=== PATIENT | male | born 1980 | race Caucasian/White ===

== ENCOUNTER → 2020-06-27 09:00 | Outpatient (CLI) | payer OTHER, SELFPAY | PROVIDERS: Referring Provider Otolaryngology; Visit Provider Otolaryngology | DX: Z11.59 Encounter for screening for other viral diseases (principal) | CPT/HCPCS: 87635; C9803; U0003 ==

== ENCOUNTER → 2020-07-04 15:31 | Outpatient (CLI) | payer OTHER, SELFPAY ==
--- NOTE | 2020-07-04 12:20 | SEP_PTH ---
PATIENT: INGRIS COLLADO LOC: [facility] U#:[id number] AGE/SX: 45/M ROOM: RE07/04/[address]: Dr. Kirk Parekh MD : [id number] BED: DIS: SPEC #: [id number] RECD: 07/04/20 15:05 STATUS: KASSANDRA RODOLFO #: [id number] MILE: 07/04/20 12:[address]: Kirk Parekh DEPT: SURGICAL PATHOLOGY RECD BY: Leela Short ENTERED: 07/05/20 09:19 SP TYPE: SEPTUM OTHR DR: No Primary Care Phys [facility] Tissues: Nasal septum, NOS Procedures: Decalcification bone/plaque Surgery Specimen Level III HEADER OPERATION: Septoplasty, submucosal resection of inferior turbinates PRE-OP DIAGNOSIS: Nasal congestion, deviated nasal septum, hypertrophy of nasal turbinates TISSUE SUBMITTED: Septum MICROSCOPIC DIAGNOSIS Nasal septum, septoplasty: Fragments of hyaline cartilage and bone with focal reactive and reparative change (clinically deviated septum). AM:alf 07/08/20 MICROSCOPIC DESCRIPTION Slides are reviewed. GROSS DESCRIPTION Received in fixative is one container labeled with the patient's name and designated septum. The specimen consists of multiple irregular fragments of light pink-yanez bone and cartilage that in aggregate measure 3 x 2.5 x 0.2 cm. The specimen is totally submitted in one cassette after decalcification. / AM:alf 07/05/20 TC:3 CPT: 39595, 68039
== END ==
LOC: LABSPEC 15:34
PROVIDERS: Referring Provider Otolaryngology; Visit Provider Otolaryngology
DX: J34.2 Deviated nasal septum (principal); R09.81 Nasal congestion
CPT/HCPCS: 88304; 88311